=== PATIENT | female | born 1950 | race Caucasian/White ===

== ENCOUNTER → 2016-09-16 | Outpatient (CLI) | payer OTHER, MEDICARE ==
[~2016-09-16] MED LIST: GADOBUTROL 10 ML VIAL IVP ONE
== END ==
LOC: FIMAGING 10:06
PROVIDERS: ATTEND Internal Medicine Hematology & Oncology
DX: G93.9 Disorder of brain, unspecified (principal); R90.82 White matter disease, unspecified; C50.919 Malignant neoplasm of unspecified site of unspecified female breast
CPT/HCPCS: 70553; A9585

== ENCOUNTER → 2016-11-12 | Outpatient (CLI) | payer OTHER, MEDICARE | LOC: FIMAGING 10:33 | PROVIDERS: ATTEND Internal Medicine Hematology & Oncology | DX: C79.31 Secondary malignant neoplasm of brain (principal); C50.411 Malignant neoplasm of upper-outer quadrant of right female breast | CPT/HCPCS: 70553; A9585 ==

== ENCOUNTER → 2017-02-04 | Outpatient (CLI) | payer OTHER, MEDICARE | LOC: FIMAGING 12:16 | PROVIDERS: ATTEND Internal Medicine Hematology & Oncology | DX: C79.31 Secondary malignant neoplasm of brain (principal); C50.411 Malignant neoplasm of upper-outer quadrant of right female breast | CPT/HCPCS: 70553; A9585 ==

== ENCOUNTER → 2017-04-20 | Outpatient (CLI) | payer OTHER, MEDICARE | LOC: FIMAGING 10:41 | PROVIDERS: ATTEND Internal Medicine Hematology & Oncology | DX: C79.31 Secondary malignant neoplasm of brain (principal); C50.411 Malignant neoplasm of upper-outer quadrant of right female breast | CPT/HCPCS: 70553; A9585 ==

== ENCOUNTER → 2017-05-03 | Outpatient (CLI) | payer OTHER, MEDICARE | LOC: FIMAGING 12:38 | PROVIDERS: ATTEND Internal Medicine Hematology & Oncology | DX: R22.32 Localized swelling, mass and lump, left upper limb (principal) ==

== ENCOUNTER → 2017-09-06 | Outpatient (CLI) | payer OTHER, MEDICARE ==
[~2017-09-06] MED LIST changes: -GADOBUTROL 10 ML VIAL IVP ONE; +LIDOCAINE 1% 300 MG/30 ML SDV ONE
== END ==
LOC: FIMAGING 13:52
PROVIDERS: ATTEND Internal Medicine Hematology & Oncology
PROC: 0HBHXZX Excision of Right Upper Leg Skin, External Approach, Diagnostic (ICD-10-PCS; principal; 2017-09-06)
DX: C79.89 Secondary malignant neoplasm of other specified sites (principal)

== ENCOUNTER → 2017-09-27 | Outpatient (CLI) | payer OTHER, MEDICARE | LOC: FIMAGING 14:31 | PROVIDERS: ATTEND Internal Medicine Hematology & Oncology | DX: C50.411 Malignant neoplasm of upper-outer quadrant of right female breast (principal); J91.0 Malignant pleural effusion ==

== ENCOUNTER → 2017-10-13 | Outpatient (CLI) | payer OTHER, MEDICARE | LOC: BHFA 14:00 | PROVIDERS: ATTEND Internal Medicine Cardiovascular Disease | DX: I35.1 Nonrheumatic aortic (valve) insufficiency (principal); Z51.11 Encounter for antineoplastic chemotherapy ==

== ENCOUNTER → 2017-11-15 | Outpatient (CLI) | payer OTHER, MEDICARE | LOC: FIMAGING 14:36 | PROVIDERS: ATTEND Internal Medicine Hematology & Oncology | DX: J90 Pleural effusion, not elsewhere classified (principal) | CPT/HCPCS: 86300-90 ==

== ENCOUNTER → 2017-11-22 | Day surgery (SDC) | payer OTHER, MEDICARE ==
[~2017-11-22] MED LIST changes: +ALTEPLASE 2 MG VIAL IVP PRN; +FLUMAZENIL 0.5 MG/5 ML MDV IVP PRN; +GLUCAGON HCL 1 MG VIAL IVP PRN; +HEPARIN 10,000 UNIT/10 ML MDV (1,000 UNIT/ML) IVP PRN; +MIDAZOLAM 2 MG/2 ML VIAL IVP PRN; +NALOXONE HCL 0.4 MG/ML INJ IVP PRN; +NS 1,000 ML IV SCH; +PROTAMINE SULFATE 50 MG/5 ML VIAL IVP PRN; +fentaNYL 100 MCG/2 ML INJ IVP PRN
--- NOTE | 2017-11-22 11:31 | PDPROPOC ---
Sedation Plan of Care Sedation Plan of Care: vital signs stable, mental status noted, patient educated of risks, benefits, alternatives, patient can tolerate sedation ASA Classification: ASA 2 Planned drugs: fentanyl, midazolam Mallampati Score: Class 2 Mallampati Reference Image: Patient passed 3-3-2 rule?: Yes
--- NOTE | 2017-11-22 11:31 | PDRADPRE ---
Radiology History & Physical Indication for procedure: cancer Home medications: Azopt 1% 1 drop DAILY 01/23/16 [Last Taken 12/23/15] Herbals/Supplements -Info Only 01/23/16 [Last Taken 12/23/15] Keppra 1,500 mg PO DAILY 01/23/16 [Last Taken 01/24/16] Metoprolol Tartrate 25 mg PO DAILY 01/23/16 [Last Taken 12/23/15] Simvastatin 40 mg PO DAILY 01/23/16 [Last Taken 12/23/15] Aspirin EC 81 mg (*) 81 mg PO DAILY 11/17/17 [Last Taken Unknown] Prednisolone 30 mg PO DAILY 11/17/17 [Last Taken Unknown] Allergies/Adverse Reactions: Penicillins Allergy (Verified 11/17/17 16:07) Hives strawberry Allergy (Verified 11/17/17 16:07) Anaphylaxis Mental status: A&Ox3 Heart exam: regular rate and rhythm Lungs exam: clear to auscultation Mallampati Score: Class 2 (Malignant right pleural effusion, plan for PleurX placement)
--- NOTE | 2017-11-22 11:32 | PDRADPN ---
Radiology Procedure Note Date of Procedure: 11/22/17 Radiologist: Jeferson Ng Anesthesia: IV Sedation Pre-op Diagnosis: Malignant right pleural effusion Post-op Diagnosis: Malignant right pleural effusion Indication: Malignant right pleural effusion Procedure: Right pleurX placement Finding(s): Moderate right pleural effusion, successful placement of drain. Inf/Abcess present in the surg proc area at time of surgery?: No Drains: Other (PleurX)
[2017-11-22 11:33] VITALS: BP 94/66
== END | disposition home or self-care (01) ==
LOC: FIMAGING 08:38
PROVIDERS: ATTEND Internal Medicine Hematology & Oncology
PROC: 0W9930Z Drainage of Right Pleural Cavity with Drainage Device, Percutaneous Approach (ICD-10-PCS; principal; 2017-11-22 11:45)
DX: C50.919 Malignant neoplasm of unspecified site of unspecified female breast (principal); J91.0 Malignant pleural effusion
CPT/HCPCS: 32550; 71045; 99152; 99153; C1729; C1769; C2617; J2250; J3010

== ENCOUNTER → 2017-12-27 | Outpatient (CLI) | payer OTHER, MEDICARE | LOC: FIMAGING 11:25 | PROVIDERS: ATTEND Internal Medicine Hematology & Oncology | DX: R91.8 Other nonspecific abnormal finding of lung field (principal); J91.0 Malignant pleural effusion; C50.411 Malignant neoplasm of upper-outer quadrant of right female breast ==

== ENCOUNTER → 2018-01-20 | Day surgery (SDC) | payer OTHER, MEDICARE ==
[~2018-01-20] MED LIST changes: -ALTEPLASE 2 MG VIAL IVP PRN; +ALTEPLASE IV ONE; -FLUMAZENIL 0.5 MG/5 ML MDV IVP PRN; -GLUCAGON HCL 1 MG VIAL IVP PRN; -HEPARIN 10,000 UNIT/10 ML MDV (1,000 UNIT/ML) IVP PRN; +IOPAMIDOL (ISOVUE-370) 150 ML BTL IV ONE; -LIDOCAINE 1% 300 MG/30 ML SDV ONE; -MIDAZOLAM 2 MG/2 ML VIAL IVP PRN; -NALOXONE HCL 0.4 MG/ML INJ IVP PRN; -NS 1,000 ML IV SCH; +NS IV ONE; -PROTAMINE SULFATE 50 MG/5 ML VIAL IVP PRN; -fentaNYL 100 MCG/2 ML INJ IVP PRN
== END | disposition home or self-care (01) ==
LOC: FIMAGING 11:49
PROVIDERS: ATTEND Radiology Vascular & Interventional Radiology
PROC: 3E0L3GC Introduction of Other Therapeutic Substance into Pleural Cavity, Percutaneous Approach (ICD-10-PCS; principal; 2018-01-20)
DX: T85.828A Fibrosis due to other internal prosthetic devices, implants and grafts, initial encounter (principal); J90 Pleural effusion, not elsewhere classified
CPT/HCPCS: 32561; 76000; C1769; J2997; Q9967